=== PATIENT | female | born 1970 | race Caucasian/White ===

== ENCOUNTER 2018-01-24 06:29 | Emergency (ER) | payer BC ==
[~2018-01-24] VITALS: Ht 162.6 cm; Wt 86.2 kg
[2018-01-24] MEDS ORDERED: NORCO 5-325 TA1 EACH PO (07:24)
[2018-01-24 07:31] VITALS: BP 136/79
== END 2018-01-24 07:55 | disposition home or self-care (01) ==
LOC: ER 06:29
DX: S52.591A Other fractures of lower end of right radius, initial encounter for closed fracture (principal); S90.811A Abrasion, right foot, initial encounter; W10.9XXA Fall (on) (from) unspecified stairs and steps, initial encounter; Y92.89 Other specified places as the place of occurrence of the external cause; Y93.89 Activity, other specified; Y99.8 Other external cause status